=== PATIENT | male | born 1970 | race American Indian/Alaskan Native ===

== ENCOUNTER 2017-08-22 22:54 | Emergency (ER) | payer SELFPAY ==
[2017-08-22] MEDS ORDERED: BENADRYL IV ONE ×2 (23:07→23:25)
[2017-08-22] MEDS ORDERED: PEPCID IV ONE (23:08)
[2017-08-22] MEDS ORDERED: ADRENALIN ONE (23:17)
[2017-08-22] MEDS ORDERED: ADRENALINE P/F SUB-Q ONE (23:24)
--- NOTE | 2017-08-22 23:29 | Emergency Department Report ---
HPI - General Chief Complaint: Allergic Reaction Time Seen by Provider: 08/22/17 23:21 - HPI HPI: Previously healthy 46-year-old man with rapid onset of allergic reaction with swelling in throat after eating a meal at local [employer] restaurant, although he is not sure what the instigating agent might have been, as he has never had any allergic reaction previously. He's had some sense of swelling of the throat, but has been able to breathe adequately, although his speech has been somewhat muffled, he feels that he is breathing okay, but shortly after arrival in the emergency department, patient developed episode of persistent nausea and one bout of significant vomiting. He has not noted any rash, has no sense of difficulty breathing or wheezing, no swelling of the tongue or mouth, and no change in the level of swelling in the back of the throat. ED Past Medical Hx - Past Medical History Previous Medical History?: No - Surgical History Past Surgical History?: No - Social History Smoking Status: Current Every Day Smoker Substance Use Type: None - Medications Home Medications: Home Medications Medication Instructions Recorded Confirmed Last Taken Type EPINEPHrine 0.3 mg IJ ONCE #3 auto.injct 08/23/17 Unknown Rx predniSONE [Deltasone] 20 mg PO QDAY #7 tab 08/23/17 Unknown Rx ED Review of Systems ROS: Stated complaint: ALLERGIC REACTION Other details as noted in HPI Comment: All other systems reviewed and negative Constitutional: denies: chills, fever ENT: throat pain (with upper throat swelling). denies: ear pain Respiratory: see HPI. denies: cough, shortness of breath, wheezing Cardiovascular: denies: chest pain, palpitations Endocrine: no symptoms reported Gastrointestinal: nausea, vomiting. denies: abdominal pain Musculoskeletal: denies: back pain, joint swelling, arthralgia Skin: denies: rash Neurological: denies: headache, weakness, paresthesias Psychiatric: denies: anxiety, depression Hematological/Lymphatic: denies: easy bleeding, easy bruising Physical Exam - Physical Exam Vital Signs: Vital Signs 08/22/17 22:58 Temperature 36.6 C Pulse Rate 82 Respiratory 20 Rate Blood Pressure 136/82 O2 Sat by Pulse 99 Oximetry General: GENERAL: Well-appearing, well-nourished adult male in moderate respiratory distress secondary to signs of swelling in throat, can speak name, but voices muffled, airway is currently patent, vital signs are stable.. HEAD: Atraumatic, normocephalic. EYES: Pupils equal round and reactive to light, extraocular movements intact, sclera anicteric, conjunctiva are normal. ENT: Oropharyngeal airway appears patent from visible portion, with no visible swelling of tongue, no lip swelling, posterior pharynx is not directly visualized, and is avoided due to possible acute swelling; TMs normal, nares patent, Moist mucous membranes. NECK: Normal range of motion, no obvious mass effect supple without lymphadenopathy or JVD. LUNGS: Breath sounds clear to auscultation bilaterally and equal. No wheezes rales or rhonchi. HEART: Regular rate and rhythm without murmurs, rubs or gallops. ABDOMEN: Soft, nontender, normoactive bowel sounds. No guarding, no rebound. No masses appreciated. EXTREMITIES: Normal range of motion, no pitting or edema. No clubbing or cyanosis. NEUROLOGICAL: Cranial nerves II through XII grossly intact. Normal speech, normal gait. PSYCH: Normal mood, normal affect. SKIN: Warm, Dry, normal turgor, no rashes or lesions noted. Physical Exam: See physical examination prior study in general exam section. ED Course Vital Signs 08/22/17 22:58 Temperature 36.6 C Pulse Rate 82 Respiratory 20 Rate Blood Pressure 136/82 O2 Sat by Pulse 99 Oximetry - Reevaluation(s) Reevaluation #1: 08/23/17 01:17 Patient significantly improved on repeat exam patient 30 minutes after initial injection of epinephrine, resting more comfortably, lungs are clear, but he does have a 4-5 cm patch of urticaria left anterior chest wall. Reevaluation #2: 08/23/17 01:18 Patient stable, capping, no respiratory distress, speech is almost back to normal, patient's breathing is easy, lungs are clear, urticaria has almost completely resolved, and abdomen is benign. Patient feels ready to go home, was given education as to use of epinephrine autoinjector, with care not to put digits over the end of the barrel and possible injection into the digit, and need to carry one with him at all times, have a readily available. Patient also instructed in continuing allergic treatment over the next several days, including 5 additional days of steroids, continued Benadryl, as well as H2 blockers such as Zantac. Patient return if he has any recurrent problems, and once she is completely resolved, should have follow-up examination and skin testing by litigation attorney associate to try to identify offending agent. ED Medical Decision Making - Medical Decision Making This patient who has been previously healthy, with no prior allergic reaction, has had a significant anaphylactic reaction, likely to one of the ingredients of food from the restaurant that he was eating in, and responded promptly to epinephrine and antihistamine and steroid treatment. He is stable for discharge home, with ongoing treatment with prednisone, continuing antihistamine treatment, and a prescription for autoinjector, with need for litigation attorney associate follow-up. - Differential Diagnosis allergic reaction, anaphylaxis, angioedema Critical Care Time: Yes Critical care time in (mins) excluding proc time.: 60 Critical care attestation.: If time is entered above; I have spent that time in minutes in the direct care of this critically ill patient, excluding procedure time. Critical Care Time: 60 minutes of critical care time was provided in assessing and stabilizing this patient with acute anaphylactic reaction, with airway swelling, with stabilizing treatment of epinephrine, and antihistamines, with good improvement. ED Disposition Clinical Impression: Anaphylaxis Qualifiers: Encounter type: initial encounter Qualified Code(s): T78.2XXA - Anaphylactic shock, unspecified, initial encounter Disposition: DC-01 TO HOME OR SELFCARE Is pt being admited?: No Does the pt Need Aspirin: No Condition: Stable Instructions: Anaphylaxis (ED), Epinephrine (Injection) Additional Instructions: U have had a severe form of allergic reaction, which we call anaphylaxis, in which the airway began swelling, and which could've been fatal if left untreated. We gave U epinephrine, which reversed much of her symptoms, and we are also prescribing epinephrine auto injector for you to use at home if you have another similar reaction. Carry an injector of epinephrine with you at all times, learn how to use it correctly, and inject yourself immediately in the outside portion of the middle of your thigh if you have any similar reactions in the future, from whatever cause. He will need to have enough injectors to have one at home, continue car , and with you at work . Be sure to get these restocked, as the epinephrine and degrade with time and temperature. And you have been given refills on these. You're to continue allergic reaction treatment for the next several days to prevent recurrence, until the offending agent is completely out of your system. Take 1 prednisone tablet daily for the next 5-7 days. Continue taking Benadryl, or the generic name is diphenhydramine, or other suitable antihistamine that you prefer, regularly over the next 2-3 days, but he had no further symptoms of swelling, hives, rash, or itching. Usual also take one of the regularly prescribed [id number] antacids such as Zantac, Tagamet, or Pepcid, as these also have antihistamine properties, wants her to continue these for the next 3 or 4 days as well, following the usual directions. Return anytime if you feel much worse. Follow with her doctor in the next week to assess how you're doing, and on-call physician today is Dr. Aracelis Talavera, telephone #[phone]. Contact the office for a repeat examination, and they can also give you a referral to an litigation attorney associate. He will need to see an litigation attorney associate for skin testing to try to identify the offending agent. Prescriptions: EPINEPHrine 0.3 mg IJ ONCE #3 auto.injct predniSONE [Deltasone] 20 mg PO QDAY #7 tab Forms: Work/School Release Form(ED) Time of Disposition: 01:29
[2017-08-23] MEDS ORDERED: ADRENALINE P/F IM ONE (01:15)
[2017-08-23] MEDS ORDERED: DELTASONE PO ONE (01:16)
[2017-08-23] MEDS ORDERED: DELTASONE ONE (01:17)
[2017-08-23] MEDS ORDERED: ADRENALIN ONE (01:17)
[2017-08-23 02:08] VITALS: BP 133/76
== END 2017-08-23 02:21 | disposition home or self-care (01) ==
LOC: ED 22:54
DX: T78.2XXA Anaphylactic shock, unspecified, initial encounter (principal); F17.200 Nicotine dependence, unspecified, uncomplicated; Y92.511 Restaurant or cafe as the place of occurrence of the external cause
CPT/HCPCS: 96372; 96374; 96375; 99291; J0171; J1200; J2930; J7512; 99282